=== PATIENT | female | born 1955 | race Caucasian/White ===

== ENCOUNTER 2018-10-07 18:35 | Emergency (ER) | payer MEDICAID, MEDICARE ==
--- NOTE | 2018-10-07 20:33 | ED Physician Documentation ---
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 Cardiovascular: Pacemaker - Present Medications Home Medications: Ambulatory Orders Medication Instructions Recorded Confirmed Aspirin [Aspir 81] 81 mg PO DAILY 07/27/13 10/07/18 Gabapentin [Neurontin] 300 mg PO HS 07/27/13 10/07/18 Oseltamivir [Tamiflu] 75 mg PO BID #9 capsule 10/07/18 - Allergies Allergies/Adverse Reactions: Allergies Allergy/AdvReac Type Severity Reaction Status Date / Time codeine Allergy Mild Nausea Verified 04/10/14 16:20 Penicillins Allergy Mild Respiratory Verified 10/07/18 18:41 - Social History Does the pt smoke?: Yes Smoking Status: Current every day smoker Does the pt drink ETOH?: No Does the pt have substance abuse?: No - Immunizations Immunizations are current?: Yes - POLST Patient has POLST: No PD ED PE NORMAL - Vitals Vital signs reviewed: Yes - General General: Alert and oriented X 3, No acute distress, Well developed/nourished - HEENT HEENT: Moist mucous membranes, Pharynx benign - Neck Neck: Supple, no meningeal sign - Cardiac Cardiac: RRR, No murmur, No gallop, No rub - Respiratory Respiratory: No respiratory distress, Clear bilaterally - Abdomen Abdomen: Soft, Non tender - Derm Derm: Normal color, Warm and dry Results - Vitals Vitals: Vital Signs - 24 hr 10/07/18 10/07/18 18:39 20:59 Temperature 37.1 C 36.8 C Heart Rate 103 H 75 Respiratory 20 20 Rate Blood Pressure 121/8 L 103/61 O2 Saturation 94 96 Oxygen O2 Source Room air - Labs Labs: Laboratory Tests 10/07/18 18:40 Influenza A (Rapid) POSITIVE H Influenza B (Rapid) Negative PD MEDICAL DECISION MAKING - ED course Complexity details: reviewed results, considered differential, d/w patient Departure - Departure Disposition: 01 Home, Self Care Clinical Impression: Influenza A Condition: Good Instructions: ED Flu, Medication: Tamiflu (Oseltamivir) Follow-Up: [facility] [Provider Group] [facility] [Provider Group] Prescriptions: Oseltamivir [Tamiflu] 75 mg PO BID #9 capsule Discharge Date/Time: 10/07/18 20:59
[2018-10-07] MEDS ORDERED: OSELTAMIVIR 75 MG CAPSULE PO STA (20:48)
[2018-10-07 21:00] VITALS: BP 103/61
== END 2018-10-07 20:59 | disposition home or self-care (01) ==
LOC: ED 18:35
DX: J10.1 Influenza due to other identified influenza virus with other respiratory manifestations (principal); F17.200 Nicotine dependence, unspecified, uncomplicated; Z79.82 Long term (current) use of aspirin
CPT/HCPCS: 87275; 87276; 99283; A9270

== ENCOUNTER 2018-11-05 11:19 | Outpatient (CLI) | payer MEDICARE ==
--- NOTE | 2018-11-05 17:01 | Mammography Report ---
Reason: SCREENING MAMMO Procedure Date: 11/05/2018 Accession Number: [id number] / [id number] Procedure: MGN - Screening Mammo Dig Bilat CPT Code: FULL RESULT: EXAM: Screening Mammo Dig Bilat DATE: 11/05/2018 11:54 AM CLINICAL HISTORY: Routine screening. Personal history of ovarian cancer. Family history of breast cancer in mother at age 74. TECHNIQUE: (B) - Bilateral Bilateral CC and MLO views were obtained. COMPARISON: None FINDINGS: Bilateral breasts: No suspicious masses, clustered microcalcifications, or regions of architectural distortion are identified. Generator pack of a left pectoral pacing device obscures portions of the left pectoralis and axillary tail. PARENCHYMAL PATTERN: (A) - The breasts demonstrate scattered fibroglandular densities bilaterally. IMPRESSION: Benign. BI-RADS Category 2. Recommend annual screening mammography. RECOMMENDATION: (ANNUAL) - Recommend routine annual screening mammography. Given personal and family history, patient may be at increased risk for development of breast cancer. Formal risk assessment with a genetic counselor should be considered; patient may benefit from advanced screening practices and/or risk reduction strategies if there is sufficient assessed risk. BI-RADS CATEGORY: (2) - Benign Findings STANDARD QUALIFYING STATEMENTS: 1. This examination was reviewed with the aid of Computer-Aided Detection (CAD). 2. A negative or benign imaging report should not preclude biopsy if clinically suspicious findings are present. 3. Dense breasts may obscure an underlying neoplasm. 4. This examination was reviewed without the aid of 3D breast imaging (tomosynthesis).
== END 2018-11-05 11:20 | disposition home or self-care (01) ==
LOC: DI.N 11:19
PROVIDERS: ATTEND Physician Assistant Medical
DX: Z12.31 Encounter for screening mammogram for malignant neoplasm of breast (principal); Z80.3 Family history of malignant neoplasm of breast
CPT/HCPCS: 77067

== ENCOUNTER 2018-11-05 11:21 | Outpatient (CLI) | payer MEDICARE ==
--- NOTE | 2018-11-05 12:18 | XRAY Report ---
Reason: Thoracolumbar pain Procedure Date: 11/05/2018 Accession Number: [id number] / [id number] Procedure: XRN - ThoracoLumbar 2 View CPT Code: 07527 FULL RESULT: EXAM: LUMBOSACRAL SPINE RADIOGRAPHY EXAM DATE: 11/05/2018 11:54 AM. CLINICAL HISTORY: Thoracolumbar pain. COMPARISONS: None. TECHNIQUE: 2 views. FINDINGS: Alignment: Normal. No spondylolisthesis or scoliosis. Bones: Five ond-hbt-oczvomw lumbar vertebral bodies are present. No fractures or bone lesions. Disks: Mild asymmetric disk space narrowing at L3-L4 with minor endplate sclerosis and osteophytosis. Facets: No degenerative changes. Sacroiliac Joints: Unremarkable. Soft Tissues: Normal. The visualized bowel gas pattern is normal. IMPRESSION: Mild asymmetric degenerative disk space narrowing at L3-L4. No fracture or malalignment. RADIA
== END 2018-11-05 11:22 | disposition home or self-care (01) ==
LOC: DI.N 11:21
PROVIDERS: ATTEND Physician Assistant Medical
DX: M51.36 Other intervertebral disc degeneration, lumbar region (principal)
CPT/HCPCS: 72080

== ENCOUNTER 2018-11-19 11:39 | Outpatient (CLI) | payer MEDICARE ==
[2018-11-19 11:54] LABS: CREATININE 0.8 mg/dL (0.4-1.0)
--- NOTE | 2018-11-20 08:25 | CT Report ---
Reason: ACUTE LOW BACK PAIN W/DIFFICULTY URINATING Procedure Date: 11/19/2018 Accession Number: [id number] / [id number] Procedure: CT - LUMBAR SPINE WO CPT Code: FULL RESULT: EXAM: CT LUMBAR SPINE WITHOUT CONTRAST EXAM DATE: 11/19/2018 12:43 PM. CLINICAL HISTORY: Acute low back pain with difficulty urinating. COMPARISONS: None. TECHNIQUE: Thin-section axial images were acquired of the lumbar spine from T12 to S1 without contrast. Post-processing: Coronal and sagittal reformats. Other: None. In accordance with CT protocol optimization, one or more of the following dose reduction techniques were utilized for this exam: automated exposure control, adjustment of mA and/or KV based on patient size, or use of iterative reconstructive technique. FINDINGS: Alignment: There is an 8-degree levoscoliosis centered on L3-L4. There is straightening of the lumbar lordosis. Bones: Five csz-fos-yifafxg lumbar vertebral bodies are present. There are no visible fractures. Disk Levels/Facets: T12-L1: Unremarkable. L1-L2: Unremarkable. L2-L3: Unremarkable. L3-L4: There is disk desiccation and loss of disk height. There are circumferential osteophytes. There is mild facet joint osteoarthritis. There is moderate canal narrowing. There is moderate bilateral foraminal narrowing. L4-L5: There is a broad-based posterior disk bulge with a right paracentral disk protrusion, moderate facet joint osteoarthritis and ligamentum flavum redundancy causing moderate canal narrowing. Mild bilateral foraminal narrowing. L5-S1: There is mild bilateral facet joint osteoarthritis. The canal and foramina are patent. Musculature: Normal. No fatty atrophy. Other: Numerous colonic diverticula. There are hypodense foci in the right kidney, suggestive of cysts. IMPRESSION: 1. Moderate degenerative change of the lumbar spine with straightening of the lumbar lordosis and a degenerative levoscoliosis. 2. L3-L4: There is moderate canal narrowing. There is moderate bilateral foraminal narrowing. 3. L4-L5: Moderate canal narrowing. Mild bilateral foraminal narrowing. RADIA
== END 2018-11-19 11:40 | disposition home or self-care (01) ==
LOC: LAB 11:39 → DI 11:40
PROVIDERS: ATTEND Physician Assistant Medical
DX: M41.86 Other forms of scoliosis, lumbar region (principal); M48.061 Spinal stenosis, lumbar region without neurogenic claudication; R33.9 Retention of urine, unspecified
CPT/HCPCS: 36415; 72131; 82565

== ENCOUNTER 2019-06-02 09:09 | Emergency (ER) | payer MEDICARE ==
[2019-06-02] MEDS ORDERED: CHERRY SYRUP 10 ML UDC PO ONE (09:44)
[2019-06-02] MEDS ORDERED: DEXAMETHASONE 10 MG/ML VIAL PO STA (09:44)
--- NOTE | 2019-06-02 09:47 | ED Physician Documentation ---
PD HPI CHEST PAIN - Stated complaint Stated Complaint: CHEST PAIN - Chief complaint Chief Complaint: Cardiac - History obtained from History obtained from: Patient - History of Present Illness Timing - onset: Today Timing - onset during: Rest Timing - duration: Hours Timing - details: Abrupt onset, Still present, Waxing and waning Quality: Sharp, Pain Location: Substernal, Left chest Radiation: Back Improved by: Rest Worsened by: Inspiration, Movement, Palpation Associated symptoms: Shortness of air, Cough. No: Diaphoresis, Nausea, Vomiting, Feeling faint / dizzy, General Weakness, Palpitations Similar symptoms before: No diagnosis Recently seen: Not recently seen - Additional information Additional information: 64-year-old female who has a pacemaker in place for panic attacks has developed some substernal left chest pain this morning on awakening. She states that it hurts to take a deep breath and it hurts when she coughs. She has had a cough for the past week. She has not had any fever.She relates the pain will radiate to her back but she is not experiencing any diaphoresis nausea lightheadedness or dizziness. She has not had radiation to the neck or jaw. She indicates that last week she was instructed to go see the assistant case manager after interrogation of her pacemaker showed some rapid heart rate. She has not been able to follow-up as she was not able to get a ride. Review of Systems Constitutional: denies: Fever Eyes: denies: Decreased vision Ears: denies: Ear pain Nose: reports: Rhinorrhea / runny nose, Congestion Throat: denies: Sore throat Cardiac: reports: Chest pain / pressure. 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 Cardiovascular: Pacemaker - Present Medications Home Medications: Ambulatory Orders Medication Instructions Recorded Confirmed Aspirin [Aspir 81] 81 mg PO DAILY 07/27/13 10/07/18 Gabapentin [Neurontin] 300 mg PO HS 07/27/13 10/07/18 Oseltamivir [Tamiflu] 75 mg PO BID #9 capsule 10/07/18 Azithromycin [Zithromax] 250 mg PO DAILY #6 tablet 06/02/19 - Allergies Allergies/Adverse Reactions: Allergies Allergy/AdvReac Type Severity Reaction Status Date / Time codeine Allergy Mild Nausea Verified 06/02/19 09:12 Penicillins Allergy Mild Respiratory Verified 06/02/19 09:12 - Social History Does the pt smoke?: Yes Smoking Status: Current every day smoker Does the pt drink ETOH?: No Does the pt have substance abuse?: No - Immunizations Immunizations are current?: Yes - POLST Patient has POLST: No PD ED PE NORMAL - Vitals Vital signs reviewed: Yes (normal ) - General General: Alert and oriented X 3, No acute distress, Well developed/nourished, Other (wet sounding cough) - HEENT HEENT: Atraumatic, PERRL, EOMI, Other (right TM is obscured by cerumen the left is clear ) - Neck Neck: Supple, no meningeal sign, No bony TTP - Cardiac Cardiac: RRR, No murmur - Respiratory Respiratory: No respiratory distress, Clear bilaterally, Other (There is specific point tenderness to the left costal-sternal junction reproducing the symptoms the patient is experiencing) - Abdomen Abdomen: Normal bowel sounds, Soft, Non tender, Non distended, No organomegaly - Back Back: No CVA TTP, No spinal TTP - Derm Derm: Normal color, Warm and dry, No rash - Extremities Extremities: No deformity, No edema - Neuro Neuro: Alert and oriented X 3, 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, No motor deficit, No sensory deficit, Normal speech Eye Opening: Spontaneous Motor: Obeys Commands Verbal: Oriented GCS Score: 15 - Psych Psych: Normal mood, Other (affect is flat) Results - Vitals Vitals: Vital Signs - 24 hr 06/02/19 06/02/19 06/02/19 09:12 11:00 11:48 Temperature 36.5 C 37.0 C Heart Rate 76 61 66 Respiratory 16 14 20 Rate Blood Pressure 124/75 132/78 H 132/78 H O2 Saturation 98 97 96 Oxygen O2 Source Room air - EKG (time done) 0922 Rate: Rate (enter#) (65) Rhythm: NSR Compare to prior EKG: Unchanged from prior EKG (SPT 04-20-2014 no significant change) Computer interpretation: Agree with computer - Labs Labs: Laboratory Tests 06/02/19 06/02/19 06/02/19 09:57 09:57 09:57 WBC 6.5 RBC 4.37 Hgb 13.4 Hct 39.4 MCV 90.2 MCH 30.7 MCHC 34.0 RDW 12.4 Plt Count 223 MPV 9.3 Neut # (Auto) 3.1 Lymph # (Auto) 2.9 [place] # (Auto) 0.4 Eos # (Auto) 0.1 Baso # (Auto) 0.0 Absolute Nucleated RBC 0.00 Nucleated RBC % 0.0 Sodium 141 Potassium 3.9 Chloride 108 Carbon Dioxide 26 Anion Gap 7.0 BUN 19 Creatinine 0.7 Estimated GFR (MDRD) 84 L Glucose 90 Calcium 9.5 Total Bilirubin 0.9 AST 15 ALT < 10 L Alkaline Phosphatase 56 Troponin I High Sens < 2.3 L Total Protein 7.1 Albumin 4.3 Globulin 2.8 Albumin/Globulin Ratio 1.5 Lipase 28 - Rads (name of study) chest Radiology: Prelim report reviewed (Impression: 1. No acute pulmonary process.), EMP read indepedently, See rad report PD MEDICAL DECISION MAKING - ED course Complexity details: reviewed old records, reviewed results, re-evaluated patient, considered differential, d/w patient ED course: 64-year-old female who has had a cough for the past week has developed chest pain and has substernal discomfort with respiration and pain to direct palpation of the left costosternal junction. She has had prior episodes of cough and congestion usually requiring antibiotic and last had this 3 months ago. She does not usually have to use an inhaler and does not feel like she would need one now. She believes the pain is coming directly just from coughing. Departure - Departure Disposition: 01 Home, Self Care Clinical Impression: Bronchitis Condition: Stable Instructions: ED Upper Resp Infec Abx Tx Follow-Up: Carolyn Carmona PA-C [Primary Care Provider] - Prescriptions: Azithromycin [Zithromax] 250 mg PO DAILY #6 tablet
[2019-06-02 10:03] LABS: BASOPHILS % (AUTO) 0.3 %; EOSINOPHILS # (AUTO) 0.1 10^3/uL (0.0-0.7); EOSINOPHILS % (AUTO) 0.8 %; HGB - HEMOGLOBIN 13.4 g/dL (12.0-16.0); LYMPHOCYTES # (AUTO) 2.9 10^3/uL (1.5-3.5); LYMPHOCYTES % (AUTO) 44.7 %; MEAN CORPUSCULAR HEMOGLOBIN 30.7 pg (27.0-31.0); MEAN CORPUSCULAR VOLUME 90.2 fL (81.0-99.0); MEAN PLATELET VOLUME 9.3 fL (7.9-10.8); MONOCYTES # (AUTO) 0.4 10^3/uL (0.0-1.0); NEUTROPHILS # (AUTO) 3.1 10^3/uL (1.5-6.6); NEUTROPHILS % (AUTO) 47.9 %; PLT - PLATELET COUNT 223 10^3/uL (130-450); RED BLOOD COUNT 4.37 10^6/uL (4.20-5.40); RED CELL DISTRIBUTION WIDTH 12.4 % (12.0-15.0); WHITE BLOOD COUNT 6.5 x10^3/uL (4.8-10.8)
[2019-06-02 10:14] LABS: ALBUMIN 4.3 g/dL (3.2-5.5); ALBUMIN/GLOBULIN RATIO 1.5 (1.0-2.2); ALKALINE PHOSPHATASE 56 IU/L (42-121); ALT ALANINE AMINOTRANSFERASE < 10 IU/L (10-60); AST ASPARTATE AMINOTRANSFERASE 15 IU/L (10-42); BILIRUBIN,TOTAL 0.9 mg/dL (0.2-1.0); BUN - BLOOD UREA NITROGEN 19 mg/dL (6-20); CALCIUM 9.5 mg/dL (8.5-10.3); CARBON DIOXIDE - CO2 26 mmol/L (21-32); CHLORIDE 108 mmol/L (101-111); CREATININE 0.7 mg/dL (0.4-1.0); GFR - MDRD 84 (>89); GLUCOSE 90 mg/dL (70-100); LIPASE 28 U/L (22-51); SODIUM 141 mmol/L (135-145); TOTAL PROTEIN 7.1 g/dL (6.7-8.2)
--- NOTE | 2019-06-02 10:33 | XRAY Report ---
Reason: chest pain Procedure Date: 06/02/2019 Accession Number: [id number] / [id number] Procedure: XR - Chest 1 View X-Ray CPT Code: 79740 FULL RESULT: EXAM: CHEST RADIOGRAPHY EXAM DATE: 06/02/2019 09:56 AM. CLINICAL HISTORY: Chest pain. COMPARISON: 04/10/2014 4:47 PM. TECHNIQUE: 1 view. FINDINGS: Lungs/Pleura: No focal opacities evident. No pleural effusion. No pneumothorax. Mediastinum: Stable cardiomediastinal silhouette. EKG leads overlie the chest. Multilead cardiac pacer is noted with leads in appropriate position. Other: None. IMPRESSION: 1. No acute pulmonary process. RADIA
[2019-06-02 12:25] VITALS: BP 141/90
== END 2019-06-02 12:26 | disposition home or self-care (01) ==
LOC: ED 09:09
DX: J40 Bronchitis, not specified as acute or chronic (principal); F17.200 Nicotine dependence, unspecified, uncomplicated
CPT/HCPCS: 36415; 71045; 80053; 83690; 84484; 85025; 93005; 99284; A9270

== ENCOUNTER 2020-05-18 13:23 | Outpatient (CLI) | payer MEDICARE ==
--- NOTE | 2020-05-19 13:28 | XRAY Report ---
PROCEDURE: Elbow 3 View RT INDICATIONS: CONTUSION R ELBOW R/O FRACTURE TECHNIQUE: 3 views of the elbow were acquired. COMPARISON: None FINDINGS: Bones: No fractures or dislocations. No suspicious bony lesions. Soft tissues: Minimal elbow joint effusion. No suspicious soft tissue calcifications. IMPRESSION: Minimal effusion. No visualized acute fracture or dislocation. However, occult injury cannot be exclu ded. Recommend short interval imaging follow-up in 7-10 days as clinically indicated for additional e valuation. Reviewed by: Maya Pacheco MD on 05/19/2020 1:27 PM PDT Approved by: Maya Pacheco MD on 05/19/2020 1:27 PM PDT Station ID: [id number]
== END 2020-05-18 13:24 | disposition home or self-care (01) ==
LOC: DI 13:23
PROVIDERS: ATTEND Family Medicine
DX: S50.01XA Contusion of right elbow, initial encounter (principal)

== ENCOUNTER 2020-08-25 13:20 | Outpatient (CLI) | payer MEDICARE, OTHER | END 2020-08-25 13:21 | disposition home or self-care (01) | LOC: COV 13:20 | PROVIDERS: ATTEND Family Medicine | DX: R50.9 Fever, unspecified (principal); Z20.822 Contact with and (suspected) exposure to COVID-19; R05 Cough; R53.83 Other fatigue; R19.7 Diarrhea, unspecified; R09.89 Other specified symptoms and signs involving the circulatory and respiratory systems ==

== ENCOUNTER 2022-05-24 08:15 | Emergency (ER) | payer MEDICARE, OTHER ==
[2022-05-24 08:35] LABS: BASOPHILS % (AUTO) 0.3 %; EOSINOPHILS # (AUTO) 0.1 10^3/uL (0.0-0.7); EOSINOPHILS % (AUTO) 0.5 %; HCT - HEMATOCRIT 38.3 % (37.0-47.0); HGB - HEMOGLOBIN 12.6 g/dL (12.0-16.0); LYMPHOCYTES # (AUTO) 3.6 10^3/uL (1.5-3.5); LYMPHOCYTES % (AUTO) 39.2 %; MEAN CORPUSCULAR HEMOGLOBIN 29.4 pg (27.0-31.0); MEAN CORPUSCULAR HGB CONC 32.9 g/dL (32.0-36.0); MEAN CORPUSCULAR VOLUME 89.3 fL (81.0-99.0); MEAN PLATELET VOLUME 8.9 fL (7.9-10.8); MONOCYTES # (AUTO) 0.6 10^3/uL (0.0-1.0); MONOCYTES % (AUTO) 6.8 %; NEUTROPHILS # (AUTO) 4.9 10^3/uL (1.5-6.6); PLT - PLATELET COUNT 329 10^3/uL (130-450); RED BLOOD COUNT 4.29 10^6/uL (4.20-5.40); RED CELL DISTRIBUTION WIDTH 12.6 % (12.0-15.0); WHITE BLOOD COUNT 9.2 x10^3/uL (4.8-10.8)
--- NOTE | 2022-05-24 08:44 | ED Physician Documentation ---
PD HPI CHEST PAIN - Stated complaint Stated Complaint: SOA - Chief complaint Chief Complaint: Cardiac - History obtained from History obtained from: Patient - History of Present Illness Timing - onset: How many days ago (4) Timing - onset during: Rest, Light activity Timing - duration: Days (4) Timing - details: Abrupt onset, Still present, Waxing and waning Quality: Aching, Sharp Location: Substernal, Epigastric Radiation: No: Jaw, Neck, Back Improved by: Rest Worsened by: Inspiration, Movement, Palpation. No: Exertion, Eating Associated symptoms: Shortness of air, Nausea, Vomiting (vomiting forcefully 2-3 days ago but has improved with last emesis last evening.). No: Feeling faint / dizzy, Cough Similar symptoms before: Has not had sx before Recently seen: Not recently seen Review of Systems Constitutional: denies: Fever, Chills Nose: denies: Rhinorrhea / runny nose, Congestion Throat: reports: Sore throat Cardiac: reports: Chest pain / pressure. denies: Palpitations, Pedal edema, Calf pain Respiratory: denies: Cough GI: reports: Nausea, Vomiting (forcefully 2-3 days ago for 2 days, often at first and then less. No vomiting since last evening.), Diarrhea. 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 Cardiovascular: Pacemaker - Present Medications Home Medications: Ambulatory Orders Medication Instructions Recorded Confirmed Aspirin [Aspir 81] 81 mg PO DAILY 07/27/13 10/07/18 Gabapentin [Neurontin] 300 mg PO HS 07/27/13 10/07/18 Oseltamivir [Tamiflu] 75 mg PO BID #9 capsule 10/07/18 Azithromycin [Zithromax] 250 mg PO DAILY #6 tablet 06/02/19 Famotidine [Pepcid] 20 mg PO DAILY #20 tablet 05/24/22 HYDROmorphone [Dilaudid] 2 mg PO Q6H PRN #12 tablet 05/24/22 Ondansetron Odt [Zofran] 4 mg TL Q6H PRN #10 tablet 05/24/22 dexAMETHasone [Decadron] 4 mg PO DAILY #5 tablet 05/24/22 - Allergies Allergies/Adverse Reactions: Allergies Allergy/AdvReac Type Severity Reaction Status Date / Time codeine Allergy Mild Nausea Verified 05/24/22 08:21 Penicillins Allergy Mild Respiratory Verified 05/24/22 08:21 - Social History Does the pt smoke?: Yes Smoking Status: Current every day smoker Does the pt drink ETOH?: No Does the pt have substance abuse?: No - Immunizations Immunizations are current?: Yes Immunizations: TDAP >10years/unknown, Other immun not current - POLST Patient has POLST: No PD ED PE NORMAL - Vitals Vital signs reviewed: Yes - General General: Alert and oriented X 3, Well developed/nourished, Other (winces in pain with palpation lower chestwall anteriorly and with deep breathing. ) - HEENT HEENT: Pharynx benign - Neck Neck: Supple, no meningeal sign, No adenopathy - Cardiac Cardiac: RRR, No murmur - Respiratory Respiratory: Clear bilaterally, Other (marked tenderness along right lower costal margin and lower parasternal cartilage areas. No rash nor redness. ) - Abdomen Abdomen: Normal bowel sounds, Soft, Non tender, Non distended - Derm Derm: Normal color, Warm and dry - Extremities Extremities: No edema, No calf tenderness / cord - Neuro Neuro: Alert and oriented X 3, No motor deficit, Normal speech Results - Vitals Vitals: Oxygen O2 Source Room air - EKG (time done) 08:21 Rate: Rate (enter#) (89) Rhythm: NSR [place]: Normal Intervals: Normal IN QRS: Normal Ischemia: Normal ST segments. No: ST elevation c/w ischemia, ST depression - Labs Labs: Laboratory Tests 05/24/22 05/24/22 05/24/22 08:31 08:31 08:31 WBC 9.2 RBC 4.29 Hgb 12.6 Hct 38.3 MCV 89.3 MCH 29.4 MCHC 32.9 RDW 12.6 Plt Count 329 MPV 8.9 Neut # (Auto) 4.9 Lymph # (Auto) 3.6 [place] # (Auto) 0.6 Eos # (Auto) 0.1 Baso # (Auto) 0.0 Absolute Nucleated RBC 0.00 Nucleated RBC % 0.0 Sodium 137 Potassium 3.5 Chloride 103 Carbon Dioxide 25 Anion Gap 9.0 BUN 28 H Creatinine 1.1 H Estimated GFR (MDRD) 49 L Glucose 99 Calcium 10.1 Total Bilirubin 0.2 AST 14 ALT 10 Alkaline Phosphatase 92 Troponin I High Sens 4.2 Total Protein 7.6 Albumin 4.2 Globulin 3.4 Albumin/Globulin Ratio 1.2 Lipase 27 - Rads (name of study) chest xray Radiology: Prelim report reviewed (no acute process), See rad report PD MEDICAL DECISION MAKING - ED course Complexity details: reviewed results (EKG and chest x-ray and labs are normal. She does have marked tenderness to palpation in the lower costal margin and parasternal area consistent with costochondritis. Presume related to dry heaving and vomiting the last 2 to 3 days. ), considered differential, d/w patient ED course: She states codeine and also oxycodone have led to marked nausea and vomiting. She tolerated the hydromorphone here IV and so we can try prescribing that instead. Departure - Departure Disposition: 01 Home, Self Care Clinical Impression: Anterior chest wall pain Chest pain Qualifiers: Chest pain type: chest pain on breathing Qualified Code(s): R07.1 - Chest pain on breathing Nausea and vomiting Qualifiers: Vomiting type: unspecified Qualified Code(s): R11.2 - Nausea with vomiting, unspecified Condition: Stable Record reviewed to determine appropriate education?: Yes Instructions: ED Chest Pain Costochondritis, ED Nausea Vomiting Follow-Up: Romel Farias MD [Primary Care Provider] - Prescriptions: dexAMETHasone [Decadron] 4 mg PO DAILY #5 tablet HYDROmorphone [Dilaudid] 2 mg PO Q6H PRN #12 tablet PRN Reason: Pain Famotidine [Pepcid] 20 mg PO DAILY #20 tablet Ondansetron Odt [Zofran] 4 mg TL Q6H PRN #10 tablet PRN Reason: Nausea / Vomiting Comments: Your EKG and troponin are normal so no signs of heart attack/heart failure. Your chest x-ray is clear without any pneumonia, collapsed lung, fluid around the lung. Your basic blood tests are good without any signs of inflammation of the pancreas or liver. The nausea and vomiting and dry heaving you have had the last few days may be viral related or consider potential stomach irritation (gastritis). I would suggest adding famotidine acid reducing medicine to help with that. Your meloxicam did not seem to be helping with the chest wall inflammation. Use Decadron steroid anti-inflammatory daily for the next 5 days and see if that works better. Add Tylenol 500 mg 4 times daily regularly for the next 5 to 7 days. To that add hydromorphone pain medication if needed for pain. This is the 1 you are given here in the IV only in a oral version. I would anticipate improvement over the next few days and resolution by 3 to 5 days. Recheck if not improving in that timeframe and return if worsening or other symptoms develop such as fevers, cough, rash, persistent vomiting etc. Regarding the nausea, you can use ondansetron every 4-6 hours if needed. I sent your prescriptions to [facility] pharmacy in [place]. My narcotic instructions I am prescribing a short course of narcotic pain medication for you. These are potentially dangerous and addictive medications that should be used carefully. These medications may constipate you. Take an rfgu-ngp-bzbqjtg stool softener such as docusate twice daily with plenty of water while taking these medications. If you go 24 hours without a bowel movement, take sbwz-goc-cuvpwtl MiraLAX, per package instructions. Do not drink or drive while taking these medications. If you received narcotic or sedating medications while in the emergency department do not drive for 24 hours. Store this medication in a safe, secure place and out of reach of children. It is a violation of federal law to give or sell this medication to another person or to use in a manner other than prescribed. The ED will not refill narcotic prescriptions, including prescriptions lost or stolen. You can dispose of unwanted medications at the [facility]'s office or at several pharmacies such as [facility]. Discharge Date/Time: 05/24/22 11:29
--- NOTE | 2022-05-24 08:48 | XRAY Report ---
PROCEDURE: Chest 1 View X-Ray INDICATIONS: Chest pain TECHNIQUE: One view of the chest was acquired. COMPARISON: Chest x-ray 06/02/2019 FINDINGS: Surgical changes and devices: Pacemaker. Lungs and pleura: No pleural effusions or pneumothorax. Lungs are clear. Mediastinum: Mediastinal contours appear normal. Heart size is normal. Bones and chest wall: No suspicious bony lesions. Overlying soft tissues appear unremarkable. IMPRESSION: No acute pulmonary process. Reviewed by: Maya Pacheco MD on 05/24/2022 8:47 AM PDT Approved by: Maya Pacheco MD on 05/24/2022 8:47 AM PDT Station ID: [id number]
[2022-05-24] MEDS ORDERED: KETOROLAC 15 MG/ML VIAL IVP STA (09:00)
[2022-05-24] MEDS ORDERED: MAG HYDROX/AL HYDROX/SIMETH 30 ML UDC PO STA (09:00)
[2022-05-24] MEDS ORDERED: HYDROmorphone 1 MG/ML CARPUJECT IVP STA (09:00)
[2022-05-24 09:02] LABS: ALBUMIN 4.2 g/dL (3.2-5.5); ALBUMIN/GLOBULIN RATIO 1.2 (1.0-2.2); BILIRUBIN,TOTAL 0.2 mg/dL (0.2-1.0); CALCIUM 10.1 mg/dL (8.5-10.3); CREATININE 1.1 mg/dL (0.4-1.0); POTASSIUM 3.5 mmol/L (3.5-5.0); TOTAL PROTEIN 7.6 g/dL (6.7-8.2)
[2022-05-24] MEDS ORDERED: DEXAMETHASONE 10 MG/ML VIAL IVP STA (10:56)
[2022-05-24 11:18] VITALS: BP 126/80
== END 2022-05-24 11:29 | disposition home or self-care (01) ==
LOC: ED 08:15
DX: R07.1 Chest pain on breathing (principal); R11.2 Nausea with vomiting, unspecified; F17.200 Nicotine dependence, unspecified, uncomplicated
CPT/HCPCS: 36415; 71045; 80053; 83690; 84484; 85025; 93005; 96374; 96375; 99284; J1170

== ENCOUNTER 2022-08-19 09:26 | Emergency (ER) | payer MEDICARE, OTHER ==
[2022-08-19 09:53] LABS: BASOPHILS % (AUTO) 0.4 %; EOSINOPHILS # (AUTO) 0.1 10^3/uL (0.0-0.7); EOSINOPHILS % (AUTO) 1.1 %; HCT - HEMATOCRIT 25.9 % (37.0-47.0); HGB - HEMOGLOBIN 7.8 g/dL (12.0-16.0); LYMPHOCYTES # (AUTO) 2.7 10^3/uL (1.5-3.5); LYMPHOCYTES % (AUTO) 35.5 %; MEAN CORPUSCULAR HEMOGLOBIN 24.8 pg (27.0-31.0); MEAN CORPUSCULAR HGB CONC 30.1 g/dL (32.0-36.0); MEAN CORPUSCULAR VOLUME 82.5 fL (81.0-99.0); MONOCYTES # (AUTO) 0.4 10^3/uL (0.0-1.0); MONOCYTES % (AUTO) 5.8 %; NEUTROPHILS # (AUTO) 4.3 10^3/uL (1.5-6.6); NEUTROPHILS % (AUTO) 56.9 %; PLT - PLATELET COUNT 361 10^3/uL (130-450); RED BLOOD COUNT 3.14 10^6/uL (4.20-5.40); RED CELL DISTRIBUTION WIDTH 14.4 % (12.0-15.0); WHITE BLOOD COUNT 7.5 x10^3/uL (4.8-10.8)
[2022-08-19] MEDS ORDERED: KETOROLAC 30 MG/ML VIAL IVP STA (09:56)
--- NOTE | 2022-08-19 09:58 | XRAY Report ---
PROCEDURE: Chest 1 View X-Ray INDICATIONS: Chest pain TECHNIQUE: One view of the chest was acquired. COMPARISON: None. FINDINGS: Surgical changes and devices: Left chest wall pacemaker leads are in the region of right atrium and right ventricle. Lungs and pleura: No pleural effusions or pneumothorax. Lungs are clear. Mediastinum: Mediastinal contours appear normal. Heart size is normal. Bones and chest wall: No suspicious bony lesions. Overlying soft tissues appear unremarkable. IMPRESSION: No acute cardiopulmonary pathology. Reviewed by: Daniel Nelson MD on 08/19/2022 9:57 AM [facility] Approved by: Daniel Nelson MD on 08/19/2022 9:57 AM [facility] Station ID: [id number]
--- NOTE | 2022-08-19 10:01 | ED Physician Documentation ---
History of Present Illness - Stated complaint Stated Complaint: CHEST PX - Chief complaint Chief Complaint: Cardiac - Additonal information Additional information: Patient is 67-year-old female presenting to the emergency department with chief complaint of chest pain. Pain began at 0400 this morning. She was using the restroom at the time of onset. Reports it is a substernal and left-sided pain made worse with deep inspiration.Does report recent travel, returned from [place]. Was seen in [place] with similar symptoms and was told that she "has an ulcer" but states that no endoscopy was performed. Endorses for history of needing a pacer placed several years ago. She denies previous stress tests or echocardiograms and states that the reason for the pacer placement was because "I had panic attacks and I was told that it stressed out my heart". Denies history of blood clots or hemoptysis. Denies fever, chills, nausea, vomiting, diarrhea, constipation. 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 Cardiovascular: Pacemaker - Present Medications Home Medications: Ambulatory Orders Medication Instructions Recorded Confirmed Aspirin [Aspir 81] 81 mg PO DAILY 07/27/13 10/07/18 Gabapentin [Neurontin] 300 mg PO HS 07/27/13 10/07/18 Oseltamivir [Tamiflu] 75 mg PO BID #9 capsule 10/07/18 Azithromycin [Zithromax] 250 mg PO DAILY #6 tablet 06/02/19 Famotidine [Pepcid] 20 mg PO DAILY #20 tablet 05/24/22 HYDROmorphone [Dilaudid] 2 mg PO Q6H PRN #12 tablet 05/24/22 Ondansetron Odt [Zofran] 4 mg TL Q6H PRN #10 tablet 05/24/22 dexAMETHasone [Decadron] 4 mg PO DAILY #5 tablet 05/24/22 Pantoprazole [Protonix] 40 mg PO BID #30 tablet 08/19/22 Sucralfate [Carafate] 1 gm PO TID #150 ml 08/19/22 - Allergies Allergies/Adverse Reactions: Allergies Allergy/AdvReac Type Severity Reaction Status Date / Time codeine Allergy Mild Nausea Verified 08/19/22 09:33 Penicillins Allergy Mild Respiratory Verified 08/19/22 09:33 - Social History Does the pt smoke?: Yes Smoking Status: Current every day smoker Does the pt drink ETOH?: No Does the pt have substance abuse?: No - Immunizations Immunizations are current?: Yes Immunizations: TDAP >10years/unknown, Other immun not current - POLST Patient has POLST: No PD ED PE NORMAL - Vitals Vital signs reviewed: Yes - General General: Alert and oriented X 3, No acute distress, Well developed/nourished - HEENT HEENT: Atraumatic - Neck Neck: Supple, no meningeal sign - Cardiac Cardiac: RRR - Respiratory Respiratory: No respiratory distress, Clear bilaterally - Abdomen Abdomen: Normal bowel sounds - Female Female : Deferred - Rectal Rectal: Deferred - Derm Derm: Normal color - Extremities Extremities: No deformity - Neuro Neuro: Alert and oriented X 3, 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, No motor deficit, No sensory deficit, Normal speech - Psych Psych: Normal mood Results - Vitals Vitals: Vital Signs - 24 hr 08/19/22 08/19/22 08/19/22 09:30 10:10 10:36 Temperature 36.1 C L Heart Rate 89 77 70 Heart Rate [ Monitoring electrodes] Respiratory 18 17 14 Rate Blood Pressure 126/59 L 115/63 114/72 Blood Pressure [Left Brachial artery] O2 Saturation 99 98 98 08/19/22 08/19/22 08/19/22 11:00 11:30 12:00 Temperature Heart Rate 75 73 73 Heart Rate [ Monitoring electrodes] Respiratory 15 12 17 Rate Blood Pressure 101/71 111/76 125/80 Blood Pressure [Left Brachial artery] O2 Saturation 100 100 100 08/19/22 08/19/22 08/19/22 12:30 12:44 13:00 Temperature 37.5 C 36.3 C L Heart Rate 71 Heart Rate [ 72 73 Monitoring electrodes] Respiratory 10 L 15 21 Rate Blood Pressure 127/77 Blood Pressure 127/77 118/76 [Left Brachial artery] O2 Saturation 100 100 100 08/19/22 08/19/22 08/19/22 13:30 14:30 15:12 Temperature 36.8 C Heart Rate 73 76 Heart Rate [ 66 Monitoring electrodes] Respiratory 12 19 13 Rate Blood Pressure 117/76 113/99 H Blood Pressure 144/88 H [Left Brachial artery] O2 Saturation 98 99 100 08/19/22 08/19/22 15:18 15:40 Temperature 36.9 C Heart Rate 69 Heart Rate [ 67 Monitoring electrodes] Respiratory 14 14 Rate Blood Pressure Blood Pressure 135/77 H [Left Brachial artery] O2 Saturation 98 100 Oxygen O2 Source Room air - EKG (time done) 0941 Rate: Rate (enter#) (77) Rhythm: NSR [place]: Normal Intervals: Normal ND QRS: Normal Ischemia: Normal ST segments Compare to prior EKG: Unchanged from prior EKG Computer interpretation: Agree with computer - Labs Labs: Laboratory Tests 08/19/22 08/19/22 08/19/22 09:49 09:49 09:49 WBC 7.5 RBC 3.14 L Hgb 7.8 L Hct 25.9 L MCV 82.5 MCH 24.8 L MCHC 30.1 L RDW 14.4 Plt Count 361 MPV 8.0 Neut # (Auto) 4.3 Lymph # (Auto) 2.7 [place] # (Auto) 0.4 Eos # (Auto) 0.1 Baso # (Auto) 0.0 Absolute Nucleated RBC 0.00 Nucleated RBC % 0.0 D-Dimer Sodium 138 Potassium 4.1 Chloride 105 Carbon Dioxide 24 Anion Gap 9.0 BUN 22 H Creatinine 0.8 Estimated GFR (MDRD) 71 L Glucose 87 Calcium 9.2 Total Bilirubin 0.3 AST 13 ALT < 10 L Alkaline Phosphatase 75 Troponin I High Sens 3.0 Total Protein 6.8 Albumin 3.6 Globulin 3.2 Albumin/Globulin Ratio 1.1 Lipase 29 Stl Occult Blood (IFOB) Blood Type Blood Type Recheck Antibody Screen Crossmatch IS Only 08/19/22 08/19/22 08/19/22 09:49 09:49 11:00 WBC RBC Hgb Hct MCV MCH MCHC RDW Plt Count MPV Neut # (Auto) Lymph # (Auto) [place] # (Auto) Eos # (Auto) Baso # (Auto) Absolute Nucleated RBC Nucleated RBC % D-Dimer < 200.0 L Sodium Potassium Chloride Carbon Dioxide Anion Gap BUN Creatinine Estimated GFR (MDRD) Glucose Calcium Total Bilirubin AST ALT Alkaline Phosphatase Troponin I High Sens Total Protein Albumin Globulin Albumin/Globulin Ratio Lipase Stl Occult Blood (IFOB) NEGATIVE Blood Type Blood Type Recheck O NEGATIVE Antibody Screen Crossmatch IS Only 08/19/22 11:02 WBC RBC Hgb Hct MCV MCH MCHC RDW Plt Count MPV Neut # (Auto) Lymph # (Auto) [place] # (Auto) Eos # (Auto) Baso # (Auto) Absolute Nucleated RBC Nucleated RBC % D-Dimer Sodium Potassium Chloride Carbon Dioxide Anion Gap BUN Creatinine Estimated GFR (MDRD) Glucose Calcium Total Bilirubin AST ALT Alkaline Phosphatase Troponin I High Sens Total Protein Albumin Globulin Albumin/Globulin Ratio Lipase Stl Occult Blood (IFOB) Blood Type O NEGATIVE Blood Type Recheck Antibody Screen NEGATIVE Crossmatch IS Only See Detail PD Medical Decision Making - ED course Complexity details: reviewed results, re-evaluated patient, d/w patient, d/w health management consultant Drug Therapy Requiring Monitoring for Toxicity: Patient received blood replacement product which required careful monitoring. ED course: Patient 67-year-old female presenting to the emergency department with chest pain. Also endorse for epigastric pain and lightheadedness.Did report that she was recently diagnosed with an ulcer during an ED visit in [place]. EKG as outlined above negative for indications for acute cardiac ischemia or dysrhythmia. Patient troponin and D-dimer negative. Of note patient does now have a new onset anemia with hemoglobin 7.8 down from greater than 12 from 3 months ago. On reevaluation patient reported that she had been having dark, tarry and malodorous stools for the last several days. She does report that she regularly takes meloxicam but denies other antiplatelet or blood thinning medications. Her presentation is concerning for symptomatic anemia and I did order 1 unit PRBCs. Rectal exam demonstrated dark but nonmalodorous and nontarry/melanotic stool. It was guaiac negative. Her case was discussed with Dr. Restrepo, Who recommends initiation of Protonix, Carafate and follow-up in the general surgical clinic first thing on Monday. Patient is agreeable to this plan after discussion, although she was explicitly offered hospitalization she preferred plan for discharge home and follow-up on an outpatient basis. She was monitored continuously on telemetry for several hours while in the emergency department with no acute changes. This time will discharge for follow-up with general surgery. Clear return precautions given prior to discharge. Final clinical impression: symptomatic anemia, upper GI bleed. Departure - Departure Disposition: Home, Self Care Clinical Impression: Anemia, UGIB (upper gastrointestinal bleed), Symptomatic anemia Instructions: ED Bleed UGI Stable Follow-Up: Flores Bach MD [Provider Admit Priv/Credential] - Modesto Jackson MD [Provider Admit Priv/Credential] - Prescriptions: Sucralfate [Carafate] 1 gm PO TID #150 ml Pantoprazole [Protonix] 40 mg PO BID #30 tablet Comments: Thank you for allowing us to care for you today at [facility]. Prescription sent electronically to [facility]. Today in the emergency department your evaluated for any possible life- threatening medical emergency. Your EKG and blood work did not show any injury to your heart however you are found to be anemic. Given the symptoms that you have been having I believe that it is likely you have been suffering from an intermittent upper GI bleed however the stool guaiac test for bleeding today was negative. You Were given a unit of red blood cells here to help with your anemia. I did discuss your case with one of our general surgeons Dr. Ellis their recommendation is for you to discontinue all nonsteroidal anti-inflammatory medication such as aspirin, meloxicam, ibuprofen or naproxen. They would like you to begin 2 more medications including a Protonix antiacid medication to take twice daily as well as a solution on his Carafate which can be used 3 times a day. It is however very important that you follow-up with one of the general surgeons who performs endoscopies on their service. Telephone numbers for Dr. Jackson and chapo are included in this discharge packet, please call them first thing Today or Monday for a follow-up appointment. If you have any new or worsening symptoms such as chest pain, heart palpitations or if you experience any sources of bleeding per mouth or by rectum please return to the emergency department immediately for reevaluation. Discharge Date/Time: 08/19/22 15:53
[2022-08-19 10:11] LABS: ALBUMIN 3.6 g/dL (3.2-5.5); ALBUMIN/GLOBULIN RATIO 1.1 (1.0-2.2); ALKALINE PHOSPHATASE 75 IU/L (42-121); ALT ALANINE AMINOTRANSFERASE < 10 IU/L (10-60); AST ASPARTATE AMINOTRANSFERASE 13 IU/L (10-42); BILIRUBIN,TOTAL 0.3 mg/dL (0.2-1.0); BUN - BLOOD UREA NITROGEN 22 mg/dL (6-20); CALCIUM 9.2 mg/dL (8.5-10.3); CARBON DIOXIDE - CO2 24 mmol/L (21-32); CHLORIDE 105 mmol/L (101-111); CREATININE 0.8 mg/dL (0.4-1.0); GFR - MDRD 71 (>89); GLUCOSE 87 mg/dL (70-100); LIPASE 29 U/L (22-51); POTASSIUM 4.1 mmol/L (3.5-5.0); SODIUM 138 mmol/L (135-145); TOTAL PROTEIN 6.8 g/dL (6.7-8.2)
[2022-08-19 11:06] LABS: FECAL OCCULT BLOOD (FIT) NEGATIVE (NEGATIVE)
[2022-08-19] MEDS ORDERED: PANTOPRAZOLE 40 MG VIAL IVP STA (11:31)
[2022-08-19 15:41] VITALS: BP 135/77
== END 2022-08-19 15:53 | disposition home or self-care (01) ==
LOC: ED 09:26
DX: D64.9 Anemia, unspecified (principal); K92.2 Gastrointestinal hemorrhage, unspecified; F17.200 Nicotine dependence, unspecified, uncomplicated
CPT/HCPCS: 36415; 36430; 71045; 80053; 82274; 83690; 84484; 85025; 85379; 86850; 86900; 86901; 86920; 93005; 96374; 96375; 99284; 99285; P9016

== ENCOUNTER 2022-09-08 18:44 | Emergency (ER) | payer MEDICARE ==
[2022-09-08 19:01] VITALS: BP 162/97
--- OUTSIDE RECORDS SUMMARY | 2022-09-08 19:12 | EXTERNAL MEDICAL SUMMARY RPT | Continuity of Care Document ---
:1955 Author Organization [facility] Address [address] [place] [address] Phone Allergies No information. Encounters No information. Functional Status No information. Immunizations No information. Medications No information. Problems date description facility 2022-08-25 09:00 Hyperlipidemia, unspecified [facility] Procedures No information. Results/Labs test date author facility value unit interpret ation Result panel 1 (unknown) (no (unknown) (unknown) (no value) (units (unk nown) date) unknown) (unknown) (no (unknown) (unknown) (normal less than (units (unknown) date) 1.3). The left unknown) ventricle resting end-diastolic volume is 88 (unknown) (no (unknown) (unknown) 0.9 (units (unkno wn) date) unknown) (unknown) (no (unknown) (unknown) 08/24/22 (units (unkno wn) date) unknown) (unknown) (no (unknown) (unknown) 1) No perfusion (units (unknown) date) evidence of ischemia unknown) or infarction. (unknown) (no (unknown) (unknown) [address] [place] [address] (units (unknown) date) unknown) (unknown) (no (unknown) (unknown) 2) Normal left (units (unknown) date) ventricular size, unknown) wall motion, and systolic function (EF post (unknown) (no (unknown) (unknown) 3) No diagnostic ST (unit s (unknown) date) changes with unknown) exercise. (unknown) (no (unknown) (unknown) 4) No angina during (unit s (unknown) date) the study. unknown) (unknown) (no (unknown) (unknown) 5) Severely reduced (unit s (unknown) date) exercise tolerance unknown) (5.8 METs, RADU +51%). Target heart rate (unknown) (no (unknown) (unknown) 6) No prior nuclear (unit s (unknown) date) stress test available unknown) for comparison. (unknown) (no (unknown) (unknown) A standard [place] (units (unknown) date) treadmill exercise unknown) tolerance test was performed by the patient (unknown) (no (unknown) (unknown) Accession Number: (units (unknown) date) [id number] unknown) (unknown) (no (unknown) (unknown) Age/Sex: 67 / F Date (uni ts (unknown) date) of Service: unknown) (unknown) (no (unknown) (unknown) [place] [address] (unit s (unknown) date) unknown) (unknown) (no (unknown) (unknown) Appropriate BP (units (unknown) date) response to exercise. unknown) (unknown) (no (unknown) (unknown) Approved by: Kiersten (unit s (unknown) date) Calos HOPPER on unknown) 08/25/2022 at 14:28 (unknown) (no (unknown) (unknown) CARDIAC STRESS: (units (unknown) date) unknown) (unknown) (no (unknown) (unknown) COMPARISON: None. (units (unknown) date) unknown) (unknown) (no (unknown) (unknown) : 1955 (units (unknown) date) Acct:[id number] unknown) (unknown) (no (unknown) (unknown) Dictated by: Kiersten (unit s (unknown) date) Calos HOPPER on unknown) 08/25/2022 at 14:26 (unknown) (no (unknown) (unknown) EKG: No diagnostic (units (unknown) date) EKG changes of unknown) ischemia; occasional PACs. (unknown) (no (unknown) (unknown) FINDINGS: (units (unkn own) date) unknown) (unknown) (no (unknown) (unknown) Hemodynamic data: (units (unknown) date) There is normal blood unknown) pressure and heart rate response to (unknown) (no (unknown) (unknown) IMPRESSION: Low (units (unknown) date) risk, normal unknown) treadmill nuclear stress test (unknown) (no (unknown) (unknown) INDICATIONS: (units (u nknown) date) Hyperlipidemia, unknown) unspecified (unknown) (no (unknown) (unknown) IV at peak exercise. (uni ts (unknown) date) A one day-protocol unknown) was performed. (unknown) (no (unknown) (unknown) [facility] (units (unknown) date) unknown) (unknown) (no (unknown) (unknown) Left ventricle (units (unknown) date) function: Gated unknown) images demonstrate normal left ventricle wall (unknown) (no (unknown) (unknown) Loc: [facility] (units (unkn own) date) unknown) (unknown) (no (unknown) (unknown) [id number] (units (unk nown) date) unknown) (unknown) (no (unknown) (unknown) Myocardial (units (unk nown) date) perfusion: No fixed unknown) or reversible perfusion defects. (unknown) (no (unknown) (unknown) No segmental wall (units (unknown) date) motion abnormality. unknown) No transient ischemic dilation; TID is (unknown) (no (unknown) (unknown) Nuclear [facility] (units (unknown) date) Report unknown) (unknown) (no (unknown) (unknown) Ordering Provider: (units (unknown) date) Kiersten Live MD unknown) (unknown) (no (unknown) (unknown) PROCEDURE: NM NAILA (units (unknown) date) PERF SPECT REST + STR unknown) (unknown) (no (unknown) (unknown) Patient: (units (unkno wn) date) Shaniqua Herrera unknown) MR#: (unknown) (no (unknown) (unknown) Procedure: NM naila (units (unknown) date) perf SPECT rest + str unknown) (unknown) (no (unknown) (unknown) RADIOPHARMACEUTICAL: (uni ts (unknown) date) 12.1 mCi Tc-99m unknown) sestamibi IV at rest and 25.1 mCi Tc-99m (unknown) (no (unknown) (unknown) Raw data: There is (units (unknown) date) good myocardial unknown) labeling by radiotracer. No significant (unknown) (no (unknown) (unknown) Rest and exercise (units (unknown) date) myocardial perfusion unknown) SPECT with gated imaging and ejection (unknown) (no (unknown) (unknown) SPECT images were (units (unknown) date) obtained. SPECT unknown) myocardial perfusion images were displayed (unknown) (no (unknown) (unknown) Signed (units (unkno wn) date) unknown) (unknown) (no (unknown) (unknown) Symptoms: Patient (units (unknown) date) denied chest pain unknown) during exercise. (unknown) (no (unknown) (unknown) TECHNIQUE: (units (unk nown) ) Radiopharmaceutical unknown) was injected at peak stress test, and also at (unknown) (no (unknown) (unknown) achieved. (units (unkn own) date) unknown) (unknown) (no (unknown) (unknown) artifacts. (units (unk nown) date) unknown) (unknown) (no (unknown) (unknown) axis, horizontal (units (unknown) date) long axis, and unknown) vertical long axis views. Gated images were (unknown) (no (unknown) (unknown) exercise (units (unkno wn) date) unknown) (unknown) (no (unknown) (unknown) fraction (units (unkno wn) date) unknown) (unknown) (no (unknown) (unknown) functional aerobic (units (unknown) date) impairment (RADU) is unknown) +51%. (unknown) (no (unknown) (unknown) in short (units (unkno wn) date) unknown) (unknown) (no (unknown) (unknown) mL. Left (units (unkno wn) date) unknown) (unknown) (no (unknown) (unknown) motion (units (unkno wn) date) unknown) (unknown) (no (unknown) (unknown) rest. (units (unkno wn) date) unknown) (unknown) (no (unknown) (unknown) reviewed (units (unkno wn) date) unknown) (unknown) (no (unknown) (unknown) seconds; (units (unkno wn) date) unknown) (unknown) (no (unknown) (unknown) sestamibi (units (unkn own) date) unknown) (unknown) (no (unknown) (unknown) stress 70%). (units (u nknown) date) unknown) (unknown) (no (unknown) (unknown) stress. Patient (units (unknown) date) achieved 86% of unknown) maximum predicted heart rate at peak exercise. (unknown) (no (unknown) (unknown) supervision of an (units (unknown) date) attending staff. The unknown) patient exercised for 4 minutes and 7 (unknown) (no (unknown) (unknown) thickening. (units (un known) date) unknown) (unknown) (no (unknown) (unknown) under the (units (unkn own) date) unknown) (unknown) (no (unknown) (unknown) using [employer] (units (unknown) date) software. unknown) (unknown) (no (unknown) (unknown) ventricle stress (units (unknown) date) ejection fraction is unknown) 70%; normal values are above 45%. Result panel 2 (unknown) (no date) (unknown) (unknown) Negative (units (unkn own) unknown) (unknown) (no date) (unknown) (unknown) Negative (units (unkn own) unknown) Social History No information. Vital Signs No information.
[2022-09-08 19:20] LABS: BASOPHILS % (AUTO) 0.5 %; EOSINOPHILS # (AUTO) 0.2 10^3/uL (0.0-0.7); EOSINOPHILS % (AUTO) 2.2 %; HGB - HEMOGLOBIN 9.6 g/dL (12.0-16.0); LYMPHOCYTES # (AUTO) 4.5 10^3/uL (1.5-3.5); LYMPHOCYTES % (AUTO) 55.9 %; MEAN CORPUSCULAR HEMOGLOBIN 23.6 pg (27.0-31.0); MEAN CORPUSCULAR VOLUME 78.8 fL (81.0-99.0); MEAN PLATELET VOLUME 9.1 fL (7.9-10.8); MONOCYTES # (AUTO) 0.5 10^3/uL (0.0-1.0); MONOCYTES % (AUTO) 6.3 %; NEUTROPHILS # (AUTO) 2.8 10^3/uL (1.5-6.6); PLT - PLATELET COUNT 388 10^3/uL (130-450); RED BLOOD COUNT 4.06 10^6/uL (4.20-5.40); RED CELL DISTRIBUTION WIDTH 14.9 % (12.0-15.0); WHITE BLOOD COUNT 8.1 x10^3/uL (4.8-10.8)
[2022-09-08 19:33] LABS: ALBUMIN 4.2 g/dL (3.2-5.5); ALBUMIN/GLOBULIN RATIO 1.3 (1.0-2.2); ALKALINE PHOSPHATASE 71 IU/L (42-121); ALT ALANINE AMINOTRANSFERASE < 10 IU/L (10-60); AST ASPARTATE AMINOTRANSFERASE 14 IU/L (10-42); BILIRUBIN,TOTAL 0.5 mg/dL (0.2-1.0); BUN - BLOOD UREA NITROGEN 14 mg/dL (6-20); CALCIUM 9.7 mg/dL (8.5-10.3); CARBON DIOXIDE - CO2 23 mmol/L (21-32); CHLORIDE 104 mmol/L (101-111); CREATININE 0.7 mg/dL (0.4-1.0); GFR - MDRD 83 (>89); GLUCOSE 100 mg/dL (70-100); LIPASE 36 U/L (22-51); POTASSIUM 3.6 mmol/L (3.5-5.0); SODIUM 139 mmol/L (135-145); TOTAL PROTEIN 7.5 g/dL (6.7-8.2)
--- NOTE | 2022-09-08 19:44 | XRAY Report ---
PROCEDURE: Chest 1 View X-Ray INDICATIONS: Chest pain TECHNIQUE: One view of the chest was acquired. COMPARISON: None. FINDINGS: Surgical changes and devices: Dual-lead left-sided transvenous pacemaker. Lungs and pleura: No pleural effusions or pneumothorax. Lungs are clear. Mediastinum: Mediastinal contours appear normal. Heart size is normal. Bones and chest wall: No suspicious bony lesions. Overlying soft tissues appear unremarkable. IMPRESSION: No acute cardiopulmonary disease. Reviewed by: Judy Felton MD on 09/08/2022 7:42 PM PST Approved by: uJdy Felton MD on 09/08/2022 7:42 PM PST Station ID: [id number]
--- NOTE | 2022-09-08 19:56 | ED Physician Documentation ---
PD HPI CHEST PAIN - Stated complaint Stated Complaint: ULCER PX - Chief complaint Chief Complaint: Abd Pain - History obtained from History obtained from: Patient - Additional information Additional information: 67-year-old woman with past medical history of bleeding ulcer and multiple ED visits for epigastric and chest pain presents with similar pain today ongoing for the past 4 hours. Patient has chronic black stools that are not worsening this week. Of note, she ran out of her Protonix medication 2 or 3 days ago. Denies fever, vomiting, hemoptysis or red blood per rectum. Denies abdominal pain except in the epigastric area. 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 Cardiovascular: Pacemaker - Present Medications Home Medications: Ambulatory Orders Medication Instructions Recorded Confirmed Aspirin [Aspir 81] 81 mg PO DAILY 07/27/13 10/07/18 Gabapentin [Neurontin] 300 mg PO HS 07/27/13 10/07/18 Oseltamivir [Tamiflu] 75 mg PO BID #9 capsule 10/07/18 Azithromycin [Zithromax] 250 mg PO DAILY #6 tablet 06/02/19 Famotidine [Pepcid] 20 mg PO DAILY #20 tablet 05/24/22 HYDROmorphone [Dilaudid] 2 mg PO Q6H PRN #12 tablet 05/24/22 Ondansetron Odt [Zofran] 4 mg TL Q6H PRN #10 tablet 05/24/22 dexAMETHasone [Decadron] 4 mg PO DAILY #5 tablet 05/24/22 Pantoprazole [Protonix] 40 mg PO BID #30 tablet 08/19/22 Sucralfate [Carafate] 1 gm PO TID #150 ml 08/19/22 Pantoprazole [Protonix] 40 mg PO BID #60 tablet 09/08/22 - Allergies Allergies/Adverse Reactions: Allergies Allergy/AdvReac Type Severity Reaction Status Date / Time codeine Allergy Mild Nausea Verified 08/19/22 09:33 Penicillins Allergy Mild Respiratory Verified 08/19/22 09:33 - Social History Does the pt smoke?: Yes Smoking Status: Current every day smoker Does the pt drink ETOH?: No Does the pt have substance abuse?: No - Immunizations Immunizations are current?: Yes Immunizations: TDAP >10years/unknown, Other immun not current - POLST Patient has POLST: No PD ED PE NORMAL - Vitals Vital signs reviewed: Yes - General General: Alert and oriented X 3, No acute distress, Well developed/nourished - HEENT HEENT: Atraumatic, PERRL, EOMI - Cardiac Cardiac: RRR - Respiratory Respiratory: No respiratory distress, Clear bilaterally - Abdomen Abdomen: Non tender, Non distended, Other (epigastric discomfort to palpation) Results - Vitals Vitals: Vital Signs - 24 hr 09/08/22 09/08/22 18:57 19:01 Temperature 36.6 C 36.6 C Heart Rate 78 78 Respiratory 16 16 Rate Blood Pressure 162/97 H 162/97 H O2 Saturation 96 96 Oxygen O2 Source Room air - EKG (time done) 1915 Rate: Rate (enter#) (73) Rhythm: NSR [place]: Normal Intervals: Normal MS, QRS normal QRS: Normal Ischemia: Normal ST segments - Labs Labs: Laboratory Tests 09/08/22 09/08/22 09/08/22 17:15 17:15 17:15 WBC 8.1 RBC 4.06 L Hgb 9.6 L Hct 32.0 L MCV 78.8 L MCH 23.6 L MCHC 30.0 L RDW 14.9 Plt Count 388 MPV 9.1 Neut # (Auto) 2.8 Lymph # (Auto) 4.5 H [place] # (Auto) 0.5 Eos # (Auto) 0.2 Baso # (Auto) 0.0 Absolute Nucleated RBC 0.00 Nucleated RBC % 0.0 Sodium 139 Potassium 3.6 Chloride 104 Carbon Dioxide 23 Anion Gap 12.0 BUN 14 Creatinine 0.7 Estimated GFR (MDRD) 83 L Glucose 100 Calcium 9.7 Total Bilirubin 0.5 AST 14 ALT < 10 L Alkaline Phosphatase 71 Troponin I High Sens 4.2 Total Protein 7.5 Albumin 4.2 Globulin 3.3 Albumin/Globulin Ratio 1.3 Lipase 36 PD Medical Decision Making - ED course Complexity details: reviewed old records, reviewed results, considered differential, d/w patient Social Determinants of Health: Patient's of gastrointestinal cancer and she states she is scared that her endoscopy and biopsy will uncover cancer in her too. She attributes her lack of sleep in part to this worry. ED course: 67-year-old woman presents with epigastric pain likely attributable to peptic ulcer disease. cardiac workup including ekg and troponin negative for acute pathology. CBC and abdominal panel uncovered no emergent concerns. Her hb has improved since last visit s/p 1 u PRBC from 7.8 on aug 19 to 9.6 today. CXR noncontributory. Given that she is out of her medications I have sent a prescription electronically to [facility] in [place]. She has endoscopy and colonoscopy scheduled 1 month from now. Encouraged her to follow-up with PCP Dr. Farias regarding her insomnia and need for medication reconciliation. Return precautions given. Departure - Departure Disposition: Home, Self Care Clinical Impression: Insomnia, Anemia, Gastric ulcer Condition: Stable Instructions: ED PUD, Insomnia Tx Prescriptions: Pantoprazole [Protonix] 40 mg PO BID #60 tablet Comments: You were seen in the emergency department for chest pain, stomach pain, and difficulty sleeping. Your blood levels are better than they were on August 19 when you were last here (hb 9.6, improved from 7.8). I have sent medication refills to [facility] in [place] electronically. Please follow-up with Dr. Villegas regarding your medications as well as with your surgeon for endoscopy and colonoscopy. Return to the emergency department for new or worsening symptoms or other concerns.
[2022-09-08] MEDS ORDERED: diphenhydrAMINE ELIXIR 25 MG/10 ML UDC PO STA (20:23)
[2022-09-08] MEDS ORDERED: MAG HYDROX/AL HYDROX/SIMETH 30 ML UDC PO STA (20:23)
[2022-09-08] MEDS ORDERED: FAMOTIDINE 20 MG TABLET PO STA (20:24)
== END 2022-09-08 20:39 | disposition home or self-care (01) ==
LOC: ED 18:44
DX: K25.9 Gastric ulcer, unspecified as acute or chronic, without hemorrhage or perforation (principal); D64.9 Anemia, unspecified; G47.00 Insomnia, unspecified; F17.200 Nicotine dependence, unspecified, uncomplicated
CPT/HCPCS: 36415; 71045; 80053; 83690; 84484; 85025; 93005; 99283; 99284; A9270

== ENCOUNTER 2022-10-14 11:43 | Day surgery (SDC) | payer MEDICARE ==
[2022-10-14] MEDS ORDERED: LACTATED RINGERS 1,000 ML IV ONE ×2 (11:51→15:13)
--- NOTE | 2022-10-14 13:58 | HISTORY & PHYSICAL EXAMINATION ---
Chief Complaint - Chief Complaint Chief Complaint: history epigastric pain and anemia History of Present Illness - History Obtained From Records Reviewed: yes History obtained from: pt Exam Limitations: none - History of Present Illness HPI Comment/Other: here for egd history pain and anemia and colonoscopy for screening History - Past Medical History Cardiovascular: reports: Congestive heart failure Respiratory: reports: None Neuro: reports: None Endocrine/Autoimmune: reports: None, Other GI: reports: GI bleed, Ulcers : reports: None HEENT: reports: None Psych: reports: Depression, Panic attacks Musculoskeletal: reports: Osteoarthritis Derm: reports: None MRSA Hx?: No - 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 - POLST Patient has POLST: No Meds/Allgy - Home Medications Home Medications: Ambulatory Orders Medication Instructions Recorded Confirmed Gabapentin [Neurontin] 300 mg PO TID 07/27/13 10/13/22 Pantoprazole [Protonix] 40 mg PO BID #60 tablet 09/08/22 10/13/22 Rosuvastatin Calcium [Crestor] 1 cap PO DAILY 10/13/22 10/13/22 Venlafaxine [Effexor] 1 tab PO DAILY 10/13/22 10/13/22 - Allergies Allergies/Adverse Reactions: Allergies Allergy/AdvReac Type Severity Reaction Status Date / Time codeine Allergy Mild Nausea Verified 10/14/22 12:03 Penicillins Allergy Mild Respiratory Verified 10/14/22 12:03 Review of Systems - Other Findings Other Findings: 10 pt ros as above otherwise unremarkable Exam - Vital Signs Reviewed Vital Signs: Yes Vital Signs: Vital Signs x48h Temp Pulse Resp BP Pulse Ox 10/14/22 12:05 36.1 C L 84 14 154/94 H 98 - Physical Exam General Appearance: positive: No acute distress, Alert Eyes Bilateral: positive: PERRL, EOMI, No scleral icterus ENT: positive: No signs of dehydration Neck: positive: No JVD, Trachea midline Respiratory: positive: No respiratory distress, Breath sounds nml Cardiovascular: positive: Regular rate & rhythm Abdomen: positive: Non-tender, No distention Neurologic/Psychiatric: positive: Oriented x3 Conclusion/Plan - Problem List (1) Gastric ulcer Conclusion/Plan: plan egd and colonoscopy for screening
[2022-10-14] MEDS ORDERED: PROPOFOL 500 MG/50 ML 500 MG/50 ML VIAL ONE (14:02)
[2022-10-14 15:46] VITALS: BP 119/63
--- NOTE | 2022-10-14 15:48 | ANESTHESIA ---
Pre-Anesthesia VS, & Labs - Diagnosis abd pain, anemia - Procedure EGD, colonoscopy Vital Signs: Temp Pulse Resp BP Pulse Ox O2 Flow Rate 36.2 C L 68 17 119/63 96 10/14/22 15:45 10/14/22 15:45 10/14/22 15:45 10/14/22 15:45 10/14/22 15:45 Height: 5 ft 2 in Weight (kg): 60 kg Body Mass Index: 24.2 BMI Classification: Normal - NPO >8 hours, Other - Is Patient ?: No Home Medications and Allergies Home Medications: Ambulatory Orders Rosuvastatin Calcium [Crestor] 1 cap PO DAILY 10/13/22 Venlafaxine [Effexor] 1 tab PO DAILY 10/13/22 Gabapentin [Neurontin] 300 mg PO TID 07/27/13 Rosuvastatin Calcium [Crestor] 1 cap PO DAILY 10/13/22 Venlafaxine [Effexor] 1 tab PO DAILY 10/13/22 Allergies/Adverse Reactions: Allergies Allergy/AdvReac Type Severity Reaction Status Date / Time codeine Allergy Mild Nausea Verified 10/14/22 12:03 Penicillins Allergy Mild Respiratory Verified 10/14/22 12:03 Anes History & Medical History - Anesthetic History Anesthesia Complications: reports: No previous complications Family history of Anesthesia Complications: Denies Family history of Malignant Hyperthermia: Denies - Medical History Cardiovascular: reports: Congestive heart failure, Other (pacemaker) Pulmonary: reports: None Gastrointestinal: reports: GI bleed, Ulcers Urinary: reports: None Neuro: reports: None Musculoskeletal: reports: Osteoarthritis Endocrine/Autoimmune: reports: None, Other Skin: reports: None Smoking Status: Current every day smoker - Surgical History Cardiothoracic: reports: Pacemaker Gynecologic: reports: Hysterectomy Exam General: Alert, Oriented x3, Cooperative Dental: Dentures full Upper, Dentures full Lower Mouth Openin Fingerbreadth Neck Mobility: Normal Mallampati classification: II Thyromental Distance: 4-6 cm Respiratory: Lungs clear Cardiovascular: Regular rate, Other (paced VDD, rate 60) Plan Anesthesia Type: General, Total IV Consent for Procedure(s) Verified and Reviewed: Yes Code Status: Attempt Resuscitation ASA classification: 3-Severe systemic disease Is this case an emergency?: No
--- NOTE | 2022-10-14 15:48 | ANESTHESIA POST OP EVALUATION ---
Anesthesia Post Eval - Post Anesthesia Eval Vitals: Last Vital Signs Temp 36.2 C L 10/14/22 15:45 Pulse 68 10/14/22 15:45 Resp 17 10/14/22 15:45 BP 119/63 10/14/22 15:45 Pulse Ox 96 10/14/22 15:45 O2 Flow Rate CV Function Including HR & BP: Stable Pain Control: Satisfactory Nausea & Vomiting: Negative Mental Status: Baseline Respiratory Status: Airway Patent Hydration Status: Satisfactory Anesthesia Complications: None
== END 2022-10-14 11:44 | disposition home or self-care (01) ==
LOC: SDS 11:43
PROVIDERS: ATTEND Surgery
PROC: 0DBN8ZX Excision of Sigmoid Colon, Via Natural or Artificial Opening Endoscopic, Diagnostic (ICD-10-PCS; 2022-10-14)
PROC: 0DB78ZX Excision of Stomach, Pylorus, Via Natural or Artificial Opening Endoscopic, Diagnostic (ICD-10-PCS; principal; 2022-10-14 13:30)
PROC: 0DBP8ZX Excision of Rectum, Via Natural or Artificial Opening Endoscopic, Diagnostic (ICD-10-PCS; 2022-10-14 13:30)
DX: Z12.11 Encounter for screening for malignant neoplasm of colon (principal); K29.50 Unspecified chronic gastritis without bleeding; D64.9 Anemia, unspecified; R10.13 Epigastric pain; K62.1 Rectal polyp; K25.9 Gastric ulcer, unspecified as acute or chronic, without hemorrhage or perforation; K57.30 Diverticulosis of large intestine without perforation or abscess without bleeding; Z95.0 Presence of cardiac pacemaker; F17.200 Nicotine dependence, unspecified, uncomplicated; I50.9 Heart failure, unspecified
CPT/HCPCS: 43239; 45380; J7120

== ENCOUNTER 2023-12-19 12:43 | Outpatient (CLI) | payer MEDICARE ==
--- NOTE | 2023-12-19 13:26 | DEXA Report ---
PROCEDURE: Dexa Spine and/or Hip INDICATIONS: POST MENOPAUSAL TECHNIQUE: Dual energy x-ray absorptiometry (DXA) was performed on a AquaBling System. Regions measur ed are the AP Spine, femoral neck, and if needed forearm. COMPARISON: None FINDINGS: Lumbar Spine: Bone Mineral Density: 0.95 g/cm/cm,T score: -1.9. Left Femoral Neck: Bone Mineral Density: 0.73 g/cm/cm, T score: -2.2. Left Hip: Bone Mineral Density: 0.74 g/cm/cm,T score: -2.2. (T score greater or equal to -1.0: NORMAL) (T score from -1.1 to -2.4: OSTEOPENIA) (T score less than or equal to -2.5 to: OSTEOPOROSIS) Impression: By WHO criteria, this patient has low bone density (osteopenia). Patients with diagnosis of osteoporosis or osteopenia should have regular bone mineral density assess ment. For those eligible for Medicare, routine testing is allowed once every 2 years. Testing frequ ency can be increased for patients who have rapidly progressing disease or for those who are receivin g medical therapy to restore bone mass. Reviewed by: Usman Gamez MD on 12/19/2023 1:25 PM PDT Approved by: Usman Gamez MD on 12/19/2023 1:25 PM PDT Station ID: [id number]
== END 2023-12-19 12:44 | disposition home or self-care (01) ==
LOC: DI 12:43
PROVIDERS: ATTEND Student in an Organized Health Care Education/Training Program
DX: Z13.820 Encounter for screening for osteoporosis (principal); Z78.0 Asymptomatic menopausal state; M85.89 Other specified disorders of bone density and structure, multiple sites

== ENCOUNTER 2023-12-21 15:06 | Outpatient (CLI) | payer MEDICARE ==
--- NOTE | 2023-12-21 19:19 | CT Report ---
PROCEDURE: Chest WO INDICATIONS: NICOTINE DEPENDENCE TECHNIQUE: A CT scan of the chest was performed. Intravenous contrast media was not administered. Images were re corded and evaluated at appropriate window settings. Reformats: axial MIP of the chest, coronal and s agittal. For radiation dose reduction, the following was used: automated exposure control, adjustment of mA and/or kV according to patient size. COMPARISON: None. FINDINGS: Image quality: Diagnostic. Chest wall and lower neck: No thyroid nodule which requires sonographic follow up. No axillary or sup raclavicular adenopathy by size. Lungs and pleura: No consolidation. Very mild centrilobular emphysema. No pleural effusions. No pneu mothorax. 3 mm superior segment right lower lobe pulmonary nodule, image 31/4. Mediastinum: Heart size is normal. Pacemaker. No pericardial effusion. No large vessel abnormality. N o mediastinal adenopathy by size criteria. Bones: No aggressive osseous abnormality. Upper Abdomen: Unremarkable. IMPRESSION: 1. Very mild emphysematous change. 2. 3 mm right upper lobe pulmonary nodule, statistically likely benign. Comment consider beginning screening yearly low-dose lung CT patient satisfies criteria Reviewed by: Dashawn Kumar MD on 12/21/2023 7:18 PM PDT Approved by: Dashawn Kumar MD on 12/21/2023 7:18 PM PDT Station ID: [id number]
== END 2023-12-21 15:07 | disposition home or self-care (01) ==
LOC: DI 15:06
PROVIDERS: ATTEND Student in an Organized Health Care Education/Training Program
DX: J43.2 Centrilobular emphysema (principal); R91.1 Solitary pulmonary nodule; F17.210 Nicotine dependence, cigarettes, uncomplicated